=== PATIENT | female | born 1990 | race Caucasian/White ===

== ENCOUNTER → 2018-06-19 15:00 | Outpatient (CLI) | payer OTHER, SELFPAY | PROVIDERS: Family Provider Registered Nurse Diabetes Educator; PCP Registered Nurse Diabetes Educator | DX: Z23 Encounter for immunization (principal) | CPT/HCPCS: 90471; 90686 ==

== ENCOUNTER → 2019-04-23 09:54 | Outpatient (CLI) | payer OTHER, SELFPAY | PROVIDERS: PCP Registered Nurse Diabetes Educator | DX: Z23 Encounter for immunization (principal) | CPT/HCPCS: 90471; 90686 ==

== ENCOUNTER → 2020-07-31 17:09 | Outpatient (CLI) | payer OTHER, SELFPAY ==
[2020-07-31] MEDS: COVID-19 VACC(MODERNA-1)/PF 100 MCG/0.5 ML VIAL IM (17:30)
== END ==
PROVIDERS: PCP Registered Nurse Diabetes Educator; Visit Provider Internal Medicine
DX: Z23 Encounter for immunization (principal)
CPT/HCPCS: 0011A; 91301

== ENCOUNTER → 2020-08-27 13:52 | Outpatient (CLI) | payer OTHER, SELFPAY ==
[2020-08-27] MEDS: COVID-19 VACC #2, MRNA(MOD) 100 MCG/0.5 ML VIAL IM (13:58)
== END ==
PROVIDERS: PCP Registered Nurse Diabetes Educator; Visit Provider Internal Medicine
DX: Z23 Encounter for immunization (principal)
CPT/HCPCS: 0012A; 91301

== ENCOUNTER → 2023-12-26 09:02 | Outpatient (CLI) | payer OTHER, SELFPAY ==
[2023-12-26 11:21] LABS: Add Manual Diff / Slide Review NO; Basophils Absolute Auto 0 /uL (0-100); Basophils Percent Auto 0.7 % (0-2); Eosinophils Absolute Auto 300 /uL (0-450); Eosinophils Percent Auto 5.1 % (2-4); Hematocrit 38.9 % (36-46); Hemoglobin 13.1 g/dL (12.0-16.0); Lymphocytes Absolute Auto 1500 /uL (1100-4500); Lymphocytes Percent Auto 27.8 % (25-40); Mean Corpuscular HGB Conc 33.7 % (30-36); Mean Corpuscular Hemoglobin 30.6 PG (26-34); Mean Corpuscular Volume 90.9 fL (80-100); Monocytes Absolute Auto 400 /uL (0-900); Monocytes Percent Auto 7.3 % (3-14); Neutrophils Absolute Auto 3100 /uL (1500-7000); Neutrophils Percent Auto 59.1 % (50-75); Platelet Count 243 X10^3/uL (150-400); Red Blood Cell Count 4.28 X10^6/uL (4.0-5.2); Red Cell Distribution Width 13.4 % (11.6-14.8); White Blood Cell Count 5.3 X10^3/uL (4.5-11.0)
[2023-12-26 11:47] LABS: Alanine Aminotransferase 16 IU/L (<35); Albumin 4.8 g/dL (3.5-5.0); Alkaline Phosphatase 43 U/L (38-126); Aspartate Aminotransferase 22 IU/L (14-36); Bilirubin Total 1.1 mg/dL (0.2-1.3); Blood Urea Nitrogen 18 mg/dL (7-17); Calcium 9.4 mg/dL (8.4-10.2); Carbon Dioxide 24 mmol/L (22-32); Chloride 108 mmol/L (98-107); Estimated Glomerular Filt Rate > 60 mL/min (>60); Globulin 2.4 g/dL (1.7-4.1); Glucose 95 mg/dL (70-100); HEMOLYSIS < 15 (0-50); Potassium 4.6 mmol/L (3.4-5.1); Sodium 139 mmol/L (137-145); Total Protein 7.2 g/dL (6.3-8.2)
[2023-12-26 12:18] LABS: Ferritin 34 ng/mL (6-137)
[2023-12-26 12:19] LABS: TSH w/ Reflex to FT4 0.75 uIU/mL (0.47-4.68)
[2023-12-26 12:30] LABS: HIV 1 & 2 Ab/Ag 4th Gen Combo NEGATIVE (NEGATIVE); Hep C Virus Ab w/Reflex Quant NEGATIVE s/c (NEGATIVE)
[2023-12-27 19:21] LABS: Anti Thyroglobulin Antibody <1.0 IU/mL (0.0-0.9); Thyroid Peroxidase Antibodies 10 IU/mL (0-34)
== END ==
PROVIDERS: PCP Family Medicine; Referring Provider Family Medicine; Visit Provider Family Medicine
DX: R53.82 Chronic fatigue, unspecified (principal); E04.1 Nontoxic single thyroid nodule; Z83.49 Family history of other endocrine, nutritional and metabolic diseases; N15.1 Renal and perinephric abscess; Z11.59 Encounter for screening for other viral diseases; Z11.4 Encounter for screening for human immunodeficiency virus [HIV]
CPT/HCPCS: 36415; 80053; 82728; 84443; 85025; 86376; 86800; 86803; 87389

== ENCOUNTER → 2025-07-04 13:50 | Outpatient (CLI) | payer OTHER, SELFPAY ==
[2025-07-04 14:24] LABS: Alanine Aminotransferase 32 IU/L (<35); Albumin 4.7 g/dL (3.5-5.0); Albumin Globulin Ratio 1.6 (1.0-2.8); Alkaline Phosphatase 40 U/L (38-126); Blood Urea Nitrogen 16 mg/dL (7-17); Calcium 10.1 mg/dL (8.4-10.2); Carbon Dioxide 24 mmol/L (22-32); Chloride 103 mmol/L (98-107); Cholesterol 197 mg/dL (140-199); Estimated Glomerular Filt Rate > 60 mL/min (>60); Globulin 2.9 g/dL (1.7-4.1); Glucose 105 mg/dL (70-99); HDL Cholesterol 76 mg/dL (40-60); HEMOLYSIS < 15 (0-50); Potassium 4.0 mmol/L (3.4-5.1); Sodium 137 mmol/L (137-145); Total Protein 7.6 g/dL (6.3-8.2); Triglycerides 130 mg/dL (35-150)
[2025-07-04 14:54] LABS: TSH w/ Reflex to FT4 1.07 uIU/mL (0.47-4.68)
== END ==
PROVIDERS: PCP Family Medicine; Referring Provider Family Medicine; Visit Provider Family Medicine
DX: E01.0 Iodine-deficiency related diffuse (endemic) goiter (principal); E78.5 Hyperlipidemia, unspecified; Z85.528 Personal history of other malignant neoplasm of kidney
CPT/HCPCS: 36415; 80053; 80061; 84443

== ENCOUNTER → 2025-07-08 14:54 | Outpatient (CLI) | payer OTHER, SELFPAY ==
--- NOTE | 2025-07-08 14:55 | DI.US.S_ITS ---
PROCEDURE: US THYROID INDICATIONS: enlarged Rt thyroid lobe TECHNIQUE: Real-time scanning was performed of the thyroid gland, with image documentation. COMPARISON: [facility], [place], US FINE NEEDLE ASPIRATION THYROID, 03/21/2023, 14:45. [facility], [place], US THYROID, 02/08/2023, 10:53. FINDINGS: Thyroid: Right lobe measures 6.4 x 3.4 x 5.1 cm. Left lobe measures 4.7 x 1.2 x 0.8 cm. Isthmus is 0.5 cm thick. Echotexture is homogeneous. Nodule number: 1 Location: Right mid inferior Size: 5.6 x 3.4 x 4.8 cm compared to 4.7 x 4.2 x 2.9 cm. Composition: Solid Echogenicity: Hypoechoic Shape: wider than tall. Margins: Smooth Echogenic foci: Non Total points: 4 ACR TI-RADS category: 4 IMPRESSION: Category 4 lesion demonstrating interval increase in size compared to prior exam. Lesion meets criteria for FNA. Recommend correlation to FNA results in 2022 as well as clinical history for potential re-sampling. ACR TI-RADS definitions and recommendations: TI-RADS 1 (benign): 0 points. FNA not needed. TI-RADS 2 (not suspicious): 2 points. FNA not needed. TI-RADS 3: 3 points. * FNA if 2.5 cm or larger, follow up if 1.5 cm or larger (at 1, 3, and 5 years). TI-RADS 4: 4-6 points. * FNA if 1.5 cm or larger, follow up if 1 cm or larger (at 1, 2, 3, and 5 years). TI-RADS 5: 7 points or more. * FNA if 1 cm or larger, follow up if 0.5 cm or larger (every year for 5 years). Dictated by: Laila Silva M.D. on 07/09/2025 at 10:14 Approved by: Laila Silva M.D. on 07/09/2025 at 10:17
== END ==
LOC: US 14:54
PROVIDERS: PCP Family Medicine; Referring Provider Family Medicine; Visit Provider Family Medicine
DX: E01.0 Iodine-deficiency related diffuse (endemic) goiter (principal); E78.5 Hyperlipidemia, unspecified; Z85.528 Personal history of other malignant neoplasm of kidney
CPT/HCPCS: 76536